=== PATIENT | female | born 1945 | race Caucasian/White ===

== ENCOUNTER 2022-06-12 14:48 | Emergency (ER) | payer MEDICARE, OTHER | END 2022-06-12 15:29 | disposition home or self-care (01) | LOC: BURERS 14:48 | DX: S60.221A Contusion of right hand, initial encounter (principal); I10 Essential (primary) hypertension; E78.5 Hyperlipidemia, unspecified; E03.9 Hypothyroidism, unspecified; W23.0XXA Caught, crushed, jammed, or pinched between moving objects, initial encounter ==